=== PATIENT | male | born 1985 | race African-American/Black ===

== ENCOUNTER 2020-12-12 19:23 | Emergency (ER) | payer SELFPAY ==
[~2020-12-12] VITALS: Ht 170.2 cm; Wt 79.5 kg
[~2020-12-12 19:23] MED LIST: CIPRO 500MG TA500 MG PO
[2020-12-12 20:36] LABS: BASO # 0.1 (0.0-0.2); BASO % 0.7 % (0.0-2.0); EOS % 0.2 % (0-4.0); GRAN # 5.1 (1.4-6.5); GRAN % 53.4 % (42.2-75.2); HEMATOCRIT 42.9 % (42.0-52.0); HEMOGLOBIN 15.5 g/dl (13.5-18.0); LYMPH # 3.5 (1.2-3.4); LYMPH % 36.7 % (20.0-51.0); MEAN CELL VOLUME 77 fl (80.0-100.0); MEAN CORPUSCULAR HEMOGLOBIN 28 pg (27.0-31.0); MEAN CORPUSCULAR HGB CONC 36 g/dl (33.0-37.0); MEAN PLATELET VOLUME 10.7 fl (7.4-10.4); MONO # 0.8 (0.1-0.6); MONO % 8.8 % (1.7-9.3); PLATELET COUNT 292 K/mm3 (130-400); RED BLOOD COUNT 5.59 M/mm3 (4.20-5.60); REDCELL DISTRIBUTION WIDTH-CV 13.7 % (11.5-14.5)
[2020-12-12 20:40] LABS: ALANINE AMINOTRANSFERASE 35 U/L (4-49); ALBUMIN 4.2 gm/dL (3.5-5.0); ALKALINE PHOSPHATASE 107 U/L (50-136); ANION GAP 9 mmol/L (7-16); AST,SGOT 51 U/L (15-37); BILIRUBIN,TOTAL 0.4 mg/dL (0.0-1.0); BLOOD UREA NITROGEN 11 mg/dL (9-20); CALCIUM 9.1 mg/dL (8.4-10.2); CARBON DIOXIDE 25 mmol/L (22-30); CHLORIDE 101 mmol/L (98-107); CREATININE, serum 1.49 (0.66-1.25); GLUCOSE 103 mg/dL (74-106); POTASSIUM 3.1 mmol/L (3.4-5.0); SODIUM 136 mmol/L (137-145); TOTAL PROTEIN 7.8 gm/dL (6.4-8.2)
[2020-12-12 20:43] LABS: ALCOHOL(ethanol),MEDICAL < 10 mg/dL
[2020-12-12] MEDS ORDERED: FLEXERIL 1010 MG/TAB PO (21:38)
[2020-12-12 22:23] VITALS: BP 105/65; PULSE 91; TEMP 98.1
== END 2020-12-12 22:30 | disposition home or self-care (01) ==
LOC: COL.ER 19:23
PROVIDERS: Emergency Medicine
DX: M54.2 Cervicalgia (principal); R07.2 Precordial pain; V89.2XXA Person injured in unspecified motor-vehicle accident, traffic, initial encounter
CPT/HCPCS: J2270; J2405; J7030; Q9967